=== PATIENT | male | born 1940 | race Caucasian/White ===

== ENCOUNTER 2020-01-22 16:25 | IRF | payer MEDICARE, OTHER, SELFPAY ==
[2020-01-22 17:14] VITALS: BP 103/74; PULSE 104; RESP 20; TEMP 36.3; O2SAT 97
[2020-01-22 17:15] VITALS: BMI 32.2
[2020-01-22 17:27] LABS: Glucose Point of Care 123 (65-105)
--- NOTE | 2020-01-22 20:45 | ADMGEN ---
This patient, Al Stacy, was admitted to [facility] Room 223-01. Patient/family oriented to hospital policies and general routines including ID bracelet, bed and alarms, visiting hours, pain management, procedures, bathroom and other care routines, personal items, smoking policy, room service/diet, and visiting hours. Valuables list has been completed. Information on how to activate the Rapid Response Team has been discussed. Patient/Family are encouraged to report perceived risks to care and to ask questions if they do not understand what they are told or what they should do. [id number] Here per POV and family at bedside, awake, alert, and oriented times person and place, situation, cues, up in bed, no complaints, call weaver within reach.
[2020-01-22] MEDS: ATORVASTATIN 40 MG TABLET PO (20:47)
[2020-01-22] MEDS: metFORMIN HCL 500 MG TABLET PO (20:48)
[2020-01-22 21:55] VITALS: BP 130/40; PULSE 75; RESP 18; TEMP 37.1; O2SAT 96
[2020-01-22 22:01] LABS: Glucose Point of Care 226 (65-105)
[2020-01-23 05:17] LABS: Basophils Absolute Auto 0.1 K/mm3 (0.0-0.1); Basophils Percent Auto 0.8 % (0.2-1.2); Eosinophils Absolute Auto 1.2 K/mm3 (0-0.3); Eosinophils Percent Auto 13.3 % (0-4.4); Hemoglobin 12.7 g/dL (14.0-18.0); Immature Granulocyte Absolute 0.03 K/mm3 (0.00-0.031); Immature Granulocyte Percent A 0.3 % (0-0.5); Lymphocytes Absolute Auto 2.57 K/mm3 (0.9-3.2); Lymphocytes Percent Auto 29.2 % (18.3-44.2); Mean Corpuscular HGB Conc 33.4 g/dl (32-36); Mean Corpuscular Hemoglobin 29.4 pg (26-34); Mean Platelet Volume 11.7 fl (7.4-10.4); Monocytes Percent Auto 11.6 % (2.6-8.5); Neutrophils Absolute Auto 3.9 K/mm3 (1.3-6.7); Neutrophils Percent Auto 44.8 % (45.5-73.1); Platelet Count Result 209 k/mm3 (150-375); Red Blood Count 4.32 M/mm3 (4.6-6.20); Red Cell Distribution Width 12.6 % (11.5-14.5); White Blood Count 8.8 K/mm3 (4.5-10.0)
[2020-01-23 05:27] LABS: Blood Urea Nitrogen 27 mg/dL (9-20); Calcium 9.1 mg/dL (8.4-10.2); Carbon Dioxide 27 mmol/L (22-30); Chloride 102 mmol/L (98-107); Cholesterol 111 mg/dL (0-200); Estimated CRCL calculation 54 ml/min; Estimated Glomerular Filt Rate > 60; Glucose 186 mg/dL (75-110); HDL Direct 28 mg/dL; Potassium 3.9 mmol/L (3.4-5.0); Sodium 137 mmol/L (137-145); Triglycerides 98 mg/dL (<150)
[2020-01-23 05:38] LABS: LDL Cholesterol Direct 66 mg/dL
[2020-01-23] MEDS: LEVOTHYROXINE SODIUM 75 MCG TABLET PO (05:59)
[2020-01-23 06:00] VITALS: BP 120/52; PULSE 65; RESP 18; TEMP 36.3; O2SAT 95
[2020-01-23 06:09] LABS: Hemoglobin A1C 8.6 % (<5.7)
[2020-01-23 06:58] LABS: Glucose Point of Care 189 (65-105)
[2020-01-23] MEDS: ASPIRIN 81 MG CHEWABLE TABLET 162 MG PO (08:31)
[2020-01-23] MEDS: metFORMIN HCL 500 MG TABLET PO ×2 (08:31→17:41)
[2020-01-23] MEDS: OPTI-GEN TAB 1 TABLET PO (08:32)
[2020-01-23] MEDS: lisinopriL 2.5 MG TABLET PO (08:32)
[2020-01-23] MEDS: glyBURIDE 2.5 MG TABLET PO ×2 (08:32→17:41)
[2020-01-23] MEDS: CLOPIDOGREL BISULFATE 75 MG TABLET PO (08:32)
--- NOTE | 2020-01-23 10:00 | WPDREHABHP ---
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 The patient is a 79-year-old right-handed white male who clearly has moderate cognitive deficit and unable to offer much of a history and in fact does not even know that he has is stroke but quite comfortable has history of diabetes hypertension and prior stroke who presented to [facility] emergency department on January 20, 2020 at the urging of his 2 sons. The sons concerns were that the patient had a very unsteady gait reduced coordination non since sickle talking and slow response. Neurology was consulted out of the emergency room and recommended bolus of normal saline hold antihypertensive medication and Plavix load. CT of the brain was negative MRI brain demonstrated small infarcts in the left basal ganglia and internal capsule. Aspirin Lipitor and Plavix were started. MRA showed no occlusion or focal significant stenosis or aneurysm in the visualized portions of the [place] of [place] the patient had a bedside swallowing evaluation on January 21, 2020 and regular consistency diet with thin liquids were recommended. DVT prophylaxis with the Plavix and Lovenox is speech therapy to evaluate for cognition and memory Therapy was initiated at the acute care facility and the patient transferred to us from [facility] on January 22, 2020 FALLS OR SURGERIES: The patient has had no major surgeries in the 100 days prior to admission. They had no falls in the past year. They had no falls with injury in the past year. PAST MEDICAL HISTORY: diabetes mellitus with peripheral neuropathy [id number] hyperlipidemia hypothyroidism and ischemic colitis along with the previous history of having had stroke PAST SURGICAL HISTORY: eye surgery probably cataract SOCIAL HISTORY: never smoker no alcohol or drug use FAMILY HISTORY: father had heart attack PRIOR LEVEL OF FUNCTION: Eating was INDEPENDENT Oral Care was INDEPENDENT Toileting Hygiene was INDEPENDENT Shower/Bathing was INDEPENDENT Upper Body Dressing was INDEPENDENT Lower Body Dressing was INDEPENDENT Donning/[place] Footwear was INDEPENDENT Rolling Left and Right was INDEPENDENT Sit to Lying was INDEPENDENT Lying to Sitting was INDEPENDENT Sit to Stand was INDEPENDENT Bed to Chair Transfers was INDEPENDENT Toilet Transfers was INDEPENDENT Walking was INDEPENDENT more than 750 feet with NO DEVICE Wheelchair Mobility was NOT APPLICABLE PRIOR TO ADMISSION Stairs were INDEPENDENT CURRENT LEVEL OF FUNCTION: Eating was independent Oral Care was partial over moderate assist Toileting Hygiene was partial/moderate assistance Shower/Bathing was partial/moderate assistance Upper Body Dressing was partial Serratia more assistance Lower Body Dressing was partial/moderate assisted Donning/[place] Footwear was partial/moderate assistance Rolling Left and Right was supervision or touch assistance Sit to Lying was supervision or touch assistance Lying to Sitting was partial or moderate assistance Sit to Stand was partial or [place]herty assistance Bed to Chair Transfers were partial or moderate assist Toilet Transfers were partial or more assistance Walking was 300 feet with a rests with standard walker partial/more assistance Wheelchair Mobility was not tested Stairs were not tested patient is having new cognitive and memory deficit since left-sided stroke and already has to my examination left-sided visual field defect which possibly may have been present either due to previous stroke as there is a history of or else possibly related to some ophthalmological disease which I would need to
[2020-01-23 11:54] LABS: Glucose Point of Care 203 (65-105)
[2020-01-23 14:00] VITALS: BP 125/55; PULSE 80; RESP 18; TEMP 36.2; O2SAT 96
[2020-01-23 14:12] VITALS: BMI 32.2
[2020-01-23 17:33] LABS: Glucose Point of Care 131 (65-105)
[2020-01-23 21:18] LABS: Glucose Point of Care 154 (65-105)
[2020-01-23] MEDS: ATORVASTATIN 40 MG TABLET PO (21:18)
[2020-01-23 21:44] VITALS: BP 113/76; PULSE 70; RESP 20; TEMP 36.6; O2SAT 98
[2020-01-24 06:00] VITALS: BP 97/60; PULSE 71; RESP 16; TEMP 35.9; O2SAT 96
[2020-01-24] MEDS: LEVOTHYROXINE SODIUM 75 MCG TABLET PO (06:10)
[2020-01-24 07:16] LABS: Glucose Point of Care 119 (65-105)
[2020-01-24] MEDS: ASPIRIN 81 MG CHEWABLE TABLET 162 MG PO (08:37)
[2020-01-24] MEDS: metFORMIN HCL 500 MG TABLET PO ×2 (08:38→17:16)
[2020-01-24] MEDS: CLOPIDOGREL BISULFATE 75 MG TABLET PO (08:38)
[2020-01-24] MEDS: OPTI-GEN TAB 1 TABLET PO (08:38)
[2020-01-24] MEDS: glyBURIDE 2.5 MG TABLET PO ×2 (08:38→17:16)
[2020-01-24] MEDS: lisinopriL 2.5 MG TABLET PO (08:38)
--- NOTE | 2020-01-24 10:54 | RPD ---
INDIVIDUALIZED PLAN OF CARE FOR Al Stacy Brief Synthesis of Pre-Admission Screen, Post-Admission Evaluation and Therapy Evaluations: The patient presents to rehab with acute infarcts of the left basal ganglia and internal capsule. Comorbidities include diabetes mellitus, hypothyroidism, acute kidney injury, hypertension, hyperlipidemia, colitis. The patient requires physician services for neurology services, medical oversight, and coordination of care. The patient needs physician monitoring for infection, monitoring for adverse reactions to new medications, and pain control. The patient requires nursing services for frequent neuro checks, anticoagulation therapy, medication management and education, pressure relief and skin care management, monitoring of labs, diabetes management and education and fall/safety precautions. Deficits include:ADLs, Balance, Endurance, Mobility, Pain Management, ROM, Safety, Strength, Transfers, Cognition Inkjet Operator/Case Management for: Discharge Planning and Patient/Family Counseling Physical Therapy: 5 days per week for 60 minutes. Treatments may include: Therapeutic Exercise, Gait Training, Neuromuscular Re-education, Transfer Training, Community Reintegration, Bed Mobility, Patient/Family Education, Wheelchair Mobility Group Therapy/Concurrent Therapy Rationales: -Improve attention span during functional activities in a distracted environment. -Enhance problem solving and/or adequate judgment skills during functional activities in a distracted environment. -Promote increased safety awareness in a distracted environment to reduce fall risk with functional tasks, transfers, and ambulation to allow a more safe, self-sufficient return to the home environment. -Improve dynamic balance skills to promote safety and independence with functional activities in a distracted environment for maximum gain. Occupational Therapy: 5 days per week for 60 minutes. Treatments may include: Therapeutic Exercise, Therapeutic Activity, Cognitive Training, Self-Care Transfer Training, Community Reintegration, Home Management, Patient/Family Education, Wheelchair Mobility Training, Energy Conservation Training Group Therapy/Concurrent Therapy Rationales: -Allow therapist to observe and teach generalization and carry-over of skills learned in individual therapy. -Enhance problem solving and sequencing skills during therapeutic activities in a distracted environment. -Promote increased safety awareness in a realistic setting to reduce fall risk with functional tasks due to visual and verbal distractions. -Increase functional level with ADLs, ADL transfers and use of adaptive equipment through therapeutic activities with others while promoting safety to allow a more safe, self-sufficient return home. Speech Therapy: 5 days per week for 60 minutes. Treatments may include: Dysphasia Therapy, Speech/Language/Communication Therapy, Cognitive Training, Patient/Family Education Group Therapy/Concurrent Therapy - Rationale: -Allow therapist to observe and teach generalization and carry-over of skills learned in individual therapy. -Improve comprehension skills with complex or abstract ideas through discussion in a realistic setting. -Enhance problem solving skills with complex issues during activities in a distracted environment. -Promote increased memory skills and concentration in a distracted environment for a safe transition home. -Improve attention and focus with language/communication skills in a realistic and supportive therapeutic setting. -Allow for practice of expression of basic needs and ideas through functional activities with others. Medical Prognosis: Good Anticipated Length of Stay: 12 days Rehab Goals: Eating Goal: 06-Independent Oral Hygiene Goal: 06-Independent Toileting Hygiene Goal: 06-Independent Shower/Bathe Self Goal: 04-Supervision or Touching Assistance Upper Body Dressing Goal: 05-Setup or Clean Up Assistance Lower
--- NOTE | 2020-01-24 11:34 | WPDNEURORHBP ---
Subjective Date/time seen: January 24, 2012 11:34 Interval history: this 79-year-old gentleman is here after having had a stroke of the left cerebral hemisphere which has left him with the cognitive deficit aphasia or dysarthria expressive aphasia and bilateral weakness right more so than the left he does have a history of diabetes mellitus with peripheral neuropathy hyperlipidemia hypothyroidism and having had history of ischemic colitis Patient denies having had chest pain shortness of breath nausea vomiting fever chills sore throat abdominal pain or diarrhea Review of Systems Review of Systems: All systems reviewed & are unremarkable except as noted in HPI and below Functional Status Ambulation Ability Ability to Ambulate 10 Feet: Minimum Assistance X 2 Ability to Ambulate 50 Feet With 2 Turns: Minimum Assistance X 1 Ability to Ambulate 150 Feet: Standby Assistance Ambulation Assistive Devices: Walker, Wheeled Transfers Ability Ability to Transfer In/Out of Chair: Contact Guard Exam Const: General: comfortable and no acute distress HENMT: General nose exam: Normal nares present Mouth: Yes moist mucous membranes Eyes: General: appearance normal, both eyes and all related structures Neck: Neck: supple and no JVD Resp: Effort & Inspection: normal respiratory effort Auscultation: clear to auscultation bilaterally Cardio: Rate: regular rate Rhythm: regular rhythm GI: GI Palp: Yes Soft to palpation Auscultation: normal bowel sounds Skin: General skin exam: normal color and no rashes or lesions noted Neuro: Other: patient is awake alert partially oriented has expressive aphasia and also comprehensive aphasia [id number] bilateral weakness needing assistance all the activities of daily living with evidence of peripheral neuropathy depressed reflexes in the lower extremities and equivocal Babinski sign Extrem: General: normal to inspection Psych: Other: patient has cognitive deficit with expressive aphasia however no sign of hostility or any change in his mood Objective Data Vital Signs Vital Signs: Vital Signs - 24 hr 01/24/20 14:00 01/24/20 22:00 01/25/20 06:00 Temperature 36.8 C 36.4 C 35.8 C L Pulse Rate 76 72 95 Respiratory Rate 20 18 18 Blood Pressure 108/58 L 122/42 L 96/47 L Pulse Oximetry 99 97 93 Intake/Output Intake/Output: Intake & Output 01/22/20 01/23/20 01/24/20 01/25/20 23:59 23:59 23:59 23:59 Intake Total 480 840 720 360 Balance 480 840 720 360 Meds/Results Medications: Active Medications Generic Name Dose Route Start Last Admin Trade Name Joseq PRN Reason Stop Dose Admin Aspirin 162 mg 01/23/20 09:00 01/25/20 08:15 Aspirin Chewable PO 162 mg DAILY KEITH Administration Atorvastatin Calcium 40 mg 01/22/20 21:00 01/24/20 20:39 Lipitor PO 40 mg HS KEITH Administration Clopidogrel Bisulfate 75 mg 01/23/20 09:00 01/25/20 08:14 Plavix PO 75 mg DAILY KEITH Administration Glyburide 2.5 mg 01/23/20 08:00 01/25/20 08:15 Micronase PO 2.5 mg BIDWM KEITH Administration Levothyroxine Sodium 75 mcg 01/23/20 06:30 01/25/20 06:02 Synthroid PO 75 mcg 0630 KEITH Administration Lisinopril 2.5 mg 01/23/20 09:00 01/25/20 08:14 Prinivil PO 2.5 mg DAILY KEITH Administration Metformin HCl 500 mg 01/22/20 17:00 01/25/20 08:14 Glucophage PO 500 mg BIDWM KEITH Administration Multivitamins/Minerals 1 tablet 01/23/20 09:00 01/25/20 08:14 Ocuvite PO 02/22/20 09:01 1 tablet DAILY KEITH Administration Labs Labs: Laboratory Results - last 24 hr 01/24/20 01/24/20 01/25/20 16:42 20:51 07:08 POC Capillary Glucose 139 H 132 H 91 Progress Note: A&P Assessment and Plan (1) Bilateral leg weakness: Code(s): R29.898 - Other symptoms and signs involving the musculoskeletal system Status: Acute (2) Aphasia: Code(s): R47.01 - Aphasia Status: Acute (3) Hypothyroid: Code(s)
[2020-01-24 14:00] VITALS: BP 108/58; PULSE 76; RESP 20; TEMP 36.8; O2SAT 99
[2020-01-24 16:57] LABS: Glucose Point of Care 139 (65-105)
[2020-01-24] MEDS: ATORVASTATIN 40 MG TABLET PO (20:39)
[2020-01-24 21:14] LABS: Glucose Point of Care 132 (65-105)
[2020-01-24 22:00] VITALS: BP 122/42; PULSE 72; RESP 18; TEMP 36.4; O2SAT 97
[2020-01-25 06:00] VITALS: BP 96/47; PULSE 95; RESP 18; TEMP 35.8; O2SAT 93
[2020-01-25] MEDS: LEVOTHYROXINE SODIUM 75 MCG TABLET PO (06:02)
[2020-01-25 07:14] LABS: Glucose Point of Care 91 (65-105)
[2020-01-25] MEDS: CLOPIDOGREL BISULFATE 75 MG TABLET PO (08:14)
[2020-01-25] MEDS: OPTI-GEN TAB 1 TABLET PO (08:14)
[2020-01-25] MEDS: metFORMIN HCL 500 MG TABLET PO ×2 (08:14→17:40)
[2020-01-25] MEDS: lisinopriL 2.5 MG TABLET PO (08:14)
[2020-01-25] MEDS: ASPIRIN 81 MG CHEWABLE TABLET 162 MG PO (08:15)
[2020-01-25] MEDS: glyBURIDE 2.5 MG TABLET PO ×2 (08:15→17:40)
--- NOTE | 2020-01-25 10:42 | PCPTNOTE ---
Al Apolonia FlyodTawanna was evaluated for a wheeled walker on 01/25/2020 by this physical therapist. The wheeled walker will resolve patient's mobility limitations and will be used for ADL's within the home. The patient can safely use the wheeled walker. ?The wheeled walker will resolve the patient?s mobility deficits, including transfers, gait in and out of his home. Iraida Pathak PT
[2020-01-25 11:54] LABS: Glucose Point of Care 96 (65-105)
[2020-01-25 14:00] VITALS: BP 111/54; PULSE 74; RESP 18; TEMP 36.4; O2SAT 96
--- NOTE | 2020-01-25 14:50 | WPDNEURORHBP ---
Subjective Date/time seen: 01/25/20 14:50 Interval history: this pleasant 79-year-old male is here on the acute rehab after sustaining a left hemispheric stroke which has left him with the cognitive deficit memory loss and right-sided weakness he is pleasant cooperative however has difficulty remembering things and also obvious speech defect On the other hand he denies any headache double vision blurred will any new neurological complaints no chest pain no shortness of breath no nausea vomiting abdominal pain fevers chills or sore throat Review of Systems Review of Systems: All systems reviewed & are unremarkable except as noted in HPI and below Functional Status Ambulation Ability Ability to Ambulate 10 Feet: Minimum Assistance X 2 Ability to Ambulate 50 Feet With 2 Turns: Minimum Assistance X 1 Ability to Ambulate 150 Feet: Standby Assistance Ambulation Assistive Devices: Walker, Wheeled Transfers Ability Ability to Transfer In/Out of Chair: Contact Guard Exam Const: General: comfortable and no acute distress HENMT: General nose exam: Normal nares present Mouth: Yes moist mucous membranes Eyes: General: appearance normal, both eyes and all related structures Neck: Neck: supple and no JVD Resp: Effort & Inspection: normal respiratory effort Auscultation: clear to auscultation bilaterally Cardio: Rate: regular rate Rhythm: regular rhythm GI: GI Palp: Yes Soft to palpation Auscultation: normal bowel sounds Skin: General skin exam: normal color and no rashes or lesions noted Neuro: Other: patient has both expressive and comprehensive aphasia however able to follow commands and engage in therapy overall he is slowly improving however is left with cognitive deficit which will help for his discharged to an independent situation right-sided hemiparesis is improving Extrem: General: normal to inspection Psych: Other: cognitive and speech deficit Objective Data Vital Signs Vital Signs: Vital Signs - 24 hr 01/24/20 22:00 01/25/20 06:00 Temperature 36.4 C 35.8 C L Pulse Rate 72 95 Respiratory Rate 18 18 Blood Pressure 122/42 L 96/47 L Pulse Oximetry 97 93 Intake/Output Intake/Output: Intake & Output 01/22/20 01/23/20 01/24/20 01/25/20 23:59 23:59 23:59 23:59 Intake Total 480 840 720 360 Balance 480 840 720 360 Meds/Results Medications: Active Medications Generic Name Dose Route Start Last Admin Trade Name Freq PRN Reason Stop Dose Admin Aspirin 162 mg 01/23/20 09:00 01/25/20 08:15 Aspirin Chewable PO 162 mg DAILY [facility] Administration Atorvastatin Calcium 40 mg 01/22/20 21:00 01/24/20 20:39 Lipitor PO 40 mg HS KEITH Administration Clopidogrel Bisulfate 75 mg 01/23/20 09:00 01/25/20 08:14 Plavix PO 75 mg DAILY KEITH Administration Glyburide 2.5 mg 01/23/20 08:00 01/25/20 08:15 Micronase PO 2.5 mg BIDWM KEITH Administration Levothyroxine Sodium 75 mcg 01/23/20 06:30 01/25/20 06:02 Synthroid PO 75 mcg 0630 KEITH Administration Lisinopril 2.5 mg 01/23/20 09:00 01/25/20 08:14 Prinivil PO 2.5 mg DAILY KEITH Administration Metformin HCl 500 mg 01/22/20 17:00 01/25/20 08:14 Glucophage PO 500 mg BIDWM [facility] Administration Multivitamins/Minerals 1 tablet 01/23/20 09:00 01/25/20 08:14 Ocuvite PO 02/22/20 09:01 1 tablet DAILY KEITH Administration Labs Labs: Laboratory Results - last 24 hr 01/24/20 01/24/20 01/25/20 16:42 20:51 07:08 POC Capillary Glucose 139 H 132 H 91 01/25/20 11:47 POC Capillary Glucose 96 Progress Note: A&P Assessment and Plan (1) Bilateral leg weakness: Code(s): R29.898 - Other symptoms and signs involving the musculoskeletal system Status: Acute (2) Bilateral arm weakness: Code(s): R29.898 - Other symptoms and signs involving the musculoskeletal system Status: Acute (3) Aphasia: Code(s): R47.01 - Aphasia Status: Acu
[2020-01-25 16:42] LABS: Glucose Point of Care 88 (65-105)
[2020-01-25] MEDS: ATORVASTATIN 40 MG TABLET PO (21:42)
[2020-01-25 22:00] VITALS: BP 141/62; PULSE 78; RESP 18; TEMP 36.3; O2SAT 96
[2020-01-25 22:16] LABS: Glucose Point of Care 122 (65-105)
[2020-01-26 06:00] VITALS: BP 136/60; PULSE 72; RESP 18; TEMP 36.3; O2SAT 97
[2020-01-26] MEDS: LEVOTHYROXINE SODIUM 75 MCG TABLET PO (06:43)
[2020-01-26 07:06] LABS: Glucose Point of Care 71 (65-105)
[2020-01-26] MEDS: metFORMIN HCL 500 MG TABLET PO ×2 (09:05→17:57)
[2020-01-26] MEDS: ASPIRIN 81 MG CHEWABLE TABLET 162 MG PO (09:05)
[2020-01-26] MEDS: glyBURIDE 2.5 MG TABLET PO (09:05)
[2020-01-26] MEDS: lisinopriL 2.5 MG TABLET PO (09:06)
[2020-01-26] MEDS: OPTI-GEN TAB 1 TABLET PO (09:06)
[2020-01-26] MEDS: CLOPIDOGREL BISULFATE 75 MG TABLET PO (09:06)
[2020-01-26 13:58] VITALS: O2SAT 0
[2020-01-26 14:00] VITALS: BP 93/56; PULSE 57; RESP 20; TEMP 36.2; O2SAT 98
[2020-01-26 17:18] LABS: Glucose Point of Care 60 (65-105)
[2020-01-26 18:00] LABS: Glucose Point of Care 82 (65-105)
--- NOTE | 2020-01-26 19:49 | PC.NURSE ---
Checked dinner blood sugar, was 60 and supper here. Rechecked after about 1/2 through meal (eats slowly) and was up to 82. Called Dr. Yanez and stated to hold gliberide.
[2020-01-26] MEDS: ATORVASTATIN 40 MG TABLET PO (20:14)
[2020-01-26 20:44] LABS: Glucose Point of Care 94 (65-105)
[2020-01-26 22:00] VITALS: BP 109/42; PULSE 73; RESP 18; TEMP 36.3; O2SAT 97
[2020-01-27] MEDS: LEVOTHYROXINE SODIUM 75 MCG TABLET PO (05:57)
[2020-01-27 06:00] VITALS: BP 110/73; PULSE 72; RESP 18; TEMP 36.6; O2SAT 98
[2020-01-27 07:04] LABS: Glucose Point of Care 107 (65-105)
[2020-01-27] MEDS: metFORMIN HCL 500 MG TABLET PO ×2 (09:24→17:43)
[2020-01-27] MEDS: CLOPIDOGREL BISULFATE 75 MG TABLET PO (09:24)
[2020-01-27] MEDS: glyBURIDE 2.5 MG TABLET PO ×2 (09:24→17:42)
[2020-01-27] MEDS: OPTI-GEN TAB 1 TABLET PO (09:25)
[2020-01-27] MEDS: lisinopriL 2.5 MG TABLET PO (09:25)
[2020-01-27] MEDS: ASPIRIN 81 MG CHEWABLE TABLET 162 MG PO (09:25)
--- NOTE | 2020-01-27 13:56 | WPDNEURORHBP ---
Subjective Date/time seen: 01/27/20 13:56 Review of Systems Review of Systems: All systems reviewed & are unremarkable except as noted in HPI and below Functional Status Ambulation Ability Ability to Ambulate 10 Feet: Contact Guard Ability to Ambulate 50 Feet With 2 Turns: Contact Guard Ability to Ambulate 150 Feet: Contact Guard Ambulation Assistive Devices: Walker, Wheeled Transfers Ability Ability to Transfer In/Out of Chair: Standby Assistance Exam Const: General: cooperative, comfortable, no acute distress and alert Orientation/consciousness: oriented to person and oriented to place Eyes: General: appearance normal, both eyes and all related structures Alignment and Position: alignment normal Eyelids: eyelids normal Sclera: sclerae normal Pupils: Equal, round and reactive pupils present EOM: EOMs intact bilaterally Chest: Chest palpation & inspection: normal inspection of the chest Resp: Effort & Inspection: normal respiratory effort Auscultation: clear to auscultation bilaterally Cardio: Rate: regular rate Rhythm: regular rhythm GI: Auscultation: normal bowel sounds Skin: General skin exam: no rashes or lesions noted Neuro: General: oriented to person, oriented to place, gait normal (hemiparetic) and no focal motor deficits (right sided deficit) Cranial nerves: Yes Equal, round and reactive pupils present, Yes Midline tongue present, Yes Symmetric palate elevation present, Yes Ability to bilaterally rotate head present, Yes Ability to bilaterally elevate shoulders present and Yes Other cranial nerve findings present (right visual field cut) Gait exam (Neuro): Normal gait present (hemiparetic gait) Deep tendon reflexes (DTR's): Right triceps reflex intensity grade: 1+, Left triceps reflex intensity grade: 0, Rt Biceps (C5, C6): 1+, Left biceps reflex intensity grade: 0, Right brachioradialis reflex intensity grade: 1+, Left brachioradialis reflex intensity grade: 0, Right patellar reflex intensity grade: 1+, Left patellar reflex intensity grade: 0, Right ankle reflex intensity grade: 1+ and Left ankle reflex intensity grade: 0 Plantar Reflex Responses: downgoing: left and upgoing (positive Babinski): right Psych: Appearance: grossly normal Objective Data Vital Signs Vital Signs: Vital Signs - 24 hr 01/26/20 14:00 01/26/20 22:00 01/27/20 06:00 Temperature 36.2 C L 36.3 C L 36.6 C Pulse Rate 57 L 73 72 Respiratory Rate 20 18 18 Blood Pressure 93/56 L 109/42 L 110/73 Pulse Oximetry 98 97 98 Intake/Output Intake/Output: Intake & Output 01/24/20 01/25/20 01/26/20 01/27/20 23:59 23:59 23:59 23:59 Intake Total 720 960 720 240 Balance 720 960 720 240 Meds/Results Medications: Active Medications Generic Name Dose Route Start Last Admin Trade Name Tiara PRN Reason Stop Dose Admin Aspirin 162 mg 01/23/20 09:00 01/27/20 09:25 Aspirin Chewable PO 162 mg DAILY KEITH Administration Atorvastatin Calcium 40 mg 01/22/20 21:00 01/26/20 20:14 Lipitor PO 40 mg HS KEITH Administration Clopidogrel Bisulfate 75 mg 01/23/20 09:00 01/27/20 09:24 Plavix PO 75 mg DAILY KEITH Administration Glyburide 2.5 mg 01/23/20 08:00 01/27/20 09:24 Micronase PO 2.5 mg BIDWM KEITH Administration Levothyroxine Sodium 75 mcg 01/23/20 06:30 01/27/20 05:57 Synthroid PO 75 mcg 0630 KEITH Administration Lisinopril 2.5 mg 01/23/20 09:00 01/27/20 09:25 Prinivil PO 2.5 mg DAILY KEITH Administration Metformin HCl 500 mg 01/22/20 17:00 01/27/20 09:24 Glucophage PO 500 mg BIDWM KEITH Administration Multivitamins/Minerals 1 tablet 01/23/20 09:00 01/27/20 09:25 Ocuvite PO 02/22/20 09:01 1 tablet DAILY KEITH Administration Labs Labs: Laboratory Results - last 24 hr 01/26/20 01/26/20 01/26/20 17:07 17:54 20:42 POC Capillary Glucose 60 L 82 94 01/27/20 06:50 POC Capillary Glucose 107 Progress Note: A&P Assessment and Plan (1)
[2020-01-27 14:38] VITALS: BP 98/78; PULSE 66; RESP 16; TEMP 36.4; O2SAT 95
[2020-01-27 17:38] LABS: Glucose Point of Care 96 (65-105)
[2020-01-27] MEDS: ATORVASTATIN 40 MG TABLET PO (20:28)
[2020-01-27 21:18] LABS: Glucose Point of Care 100 (65-105)
[2020-01-27 21:48] VITALS: BP 106/72; PULSE 66; RESP 16; TEMP 36.2; O2SAT 96
[2020-01-28] MEDS: LEVOTHYROXINE SODIUM 75 MCG TABLET PO (05:27)
[2020-01-28 06:00] VITALS: BP 152/77; PULSE 82; RESP 20; TEMP 35.9; O2SAT 95
[2020-01-28 06:56] LABS: Glucose Point of Care 76 (65-105)
[2020-01-28] MEDS: metFORMIN HCL 500 MG TABLET PO ×2 (08:26→16:58)
[2020-01-28] MEDS: glyBURIDE 2.5 MG TABLET PO ×2 (08:26→16:58)
[2020-01-28] MEDS: ASPIRIN 81 MG CHEWABLE TABLET 162 MG PO (08:26)
[2020-01-28] MEDS: lisinopriL 2.5 MG TABLET PO (08:26)
[2020-01-28] MEDS: CLOPIDOGREL BISULFATE 75 MG TABLET PO (08:26)
[2020-01-28] MEDS: OPTI-GEN TAB 1 TABLET PO (08:26)
[2020-01-28 14:00] VITALS: BP 130/57; PULSE 74; RESP 20; TEMP 36.3; O2SAT 98
[2020-01-28] MEDS: ATORVASTATIN 40 MG TABLET PO (20:13)
[2020-01-28 22:00] VITALS: BP 108/47; PULSE 78; RESP 18; TEMP 36.7; O2SAT 99
[2020-01-29 06:00] VITALS: BP 110/48; PULSE 78; RESP 18; TEMP 36.3; O2SAT 97
[2020-01-29 06:02] LABS: Glucose Point of Care 78 (65-105)
[2020-01-29] MEDS: LEVOTHYROXINE SODIUM 75 MCG TABLET PO (06:15)
[2020-01-29] MEDS: metFORMIN HCL 500 MG TABLET PO ×2 (07:55→17:13)
[2020-01-29] MEDS: OPTI-GEN TAB 1 TABLET PO (07:55)
[2020-01-29] MEDS: lisinopriL 2.5 MG TABLET PO (07:55)
[2020-01-29] MEDS: CLOPIDOGREL BISULFATE 75 MG TABLET PO (07:55)
[2020-01-29] MEDS: glyBURIDE 2.5 MG TABLET PO ×2 (07:55→17:13)
[2020-01-29] MEDS: ASPIRIN 81 MG CHEWABLE TABLET 162 MG PO (07:55)
--- NOTE | 2020-01-29 12:37 | PCPTNOTE ---
Al Stacy was evaluated for a wheeled walker on 01/29/2020 by this physical therapist. The wheeled walker will resolve patient's mobility limitations and will be used for ADL's within the home. The patient can safely use the wheeled walker with family standby assist. ?The wheeled walker will resolve the patient?s mobility deficits, including transfers, gait in and out of home with family. Iraida Pathak PT
--- NOTE | 2020-01-29 13:41 | PCDIET ---
Nutrition Follow-Up Complete: Decreased saturated fat/sodium needs related to cardiovascular disease as evidenced by CVA. Patient to consume 75% of meals or greater. Goal met. Pt eating an average of 95% of meals. Nutrition recommendation: Recommend continuation of DM CHO consistent diet order in order to provide pt with adequate nutrition and stabilize glucose levels, promoting healing. Last recorded weight is 93.4 kg. Bowel Motility: +BM 01/26 Labs Reviewed: POC Capillary GLU (78) Meds Noted:Multivitamin, Lipitor, Metformin, Glyburide Additional Notes: Pt states appetite is good and no GI related complaints. Follow up in 5-7 days.
[2020-01-29 14:00] VITALS: BP 110/55; PULSE 74; RESP 20; TEMP 36.3; O2SAT 96
--- NOTE | 2020-01-29 14:04 | PCNSR ---
On 01/29/20, the student, [La Nena Arriaga ], provided care and completed [facility] documentation on this patient. I have reviewed the student's documentation and agree with the findings.
--- NOTE | 2020-01-29 14:48 | WPDNEURORHBP ---
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 which has left him with the speech defect and cognitive deficit along with right-sided hemiparesis the motor function is not that he was however his problem is the impulsivity and of course the cognitive deficit along with the speech defect He remains awake and alert follows commands and improving overall without any complaints of headache nausea vomiting chest pain and shortness of breath abdominal pain or bladder or bowel dysfunction Review of Systems Review of Systems: All systems reviewed & are unremarkable except as noted in HPI and below Constitutional: Constitutional: Reports no additional constitutional complaints Functional Status Ambulation Ability Ability to Ambulate 10 Feet: Minimum Assistance X 1 Ability to Ambulate 50 Feet With 2 Turns: Minimum Assistance X 1 Ability to Ambulate 150 Feet: Minimum Assistance X 1 Ambulation Assistive Devices: Walker, Wheeled Transfers Ability Ability to Transfer In/Out of Chair: Contact Guard Exam Const: General: comfortable and no acute distress HENMT: General nose exam: Normal nares present Mouth: Yes moist mucous membranes Eyes: General: appearance normal, both eyes and all related structures Neck: Neck: supple and no JVD Resp: Effort & Inspection: normal respiratory effort Auscultation: clear to auscultation bilaterally Cardio: Rate: regular rate Rhythm: regular rhythm GI: GI Palp: Yes Soft to palpation Auscultation: normal bowel sounds Skin: General skin exam: normal color and no rashes or lesions noted Neuro: Other: patient is awake alert partially oriented follows all commands has a defective short-term memory and cognitive deficit with improving right-sided hemiparesis Extrem: General: normal to inspection Objective Data Vital Signs Vital Signs: Vital Signs - 24 hr 01/28/20 22:00 01/29/20 06:00 01/29/20 14:00 Temperature 36.7 C 36.3 C L 36.3 C L Pulse Rate 78 78 74 Respiratory Rate 18 18 20 Blood Pressure 108/47 L 110/48 L 110/55 L Pulse Oximetry 99 97 96 Intake/Output Intake/Output: Intake & Output 01/26/20 01/27/20 01/28/20 01/29/20 23:59 23:59 23:59 23:59 Intake Total 720 920 720 720 Balance 720 920 720 720 Meds/Results Medications: Active Medications Generic Name Dose Route Start Last Admin Trade Name Tiara PRN Reason Stop Dose Admin Aspirin 162 mg 01/23/20 09:00 01/29/20 07:55 Aspirin Chewable PO 162 mg DAILY KEITH Administration Atorvastatin Calcium 40 mg 01/22/20 21:00 01/28/20 20:13 Lipitor PO 40 mg HS KEITH Administration Clopidogrel Bisulfate 75 mg 01/23/20 09:00 01/29/20 07:55 Plavix PO 75 mg DAILY KEITH Administration Glyburide 2.5 mg 01/23/20 08:00 01/29/20 07:55 Micronase PO 2.5 mg BIDWM KEITH Administration Levothyroxine Sodium 75 mcg 01/23/20 06:30 01/29/20 06:15 Synthroid PO 75 mcg 0630 KEITH Administration Lisinopril 2.5 mg 01/23/20 09:00 01/29/20 07:55 Prinivil PO 2.5 mg DAILY KEITH Administration Metformin HCl 500 mg 01/22/20 17:00 01/29/20 07:55 Glucophage PO 500 mg BIDWM KEITH Administration Multivitamins/Minerals 1 tablet 01/23/20 09:00 01/29/20 07:55 Ocuvite PO 02/22/20 09:01 1 tablet DAILY KEITH Administration Labs Labs: Laboratory Results - last 24 hr 01/29/20 05:45 POC Capillary Glucose 78 Progress Note: A&P Assessment and Plan (1) Bilateral leg weakness: Code(s): R29.898 - Other symptoms and signs involving the musculoskeletal system Status: Acute (2) Bilateral arm weakness: Code(s): R29.898 - Other symptoms and signs involving the musculoskeletal system Status: Acute (3) Aphasia: Code(s): R47.01 - Aphasia Status: Acute (4) Hypothyroid: Code(s): E03.9 - Hypothyroidism, unspecified Status: A
[2020-01-29 17:15] LABS: Glucose Point of Care 219 (65-105)
[2020-01-29] MEDS: ATORVASTATIN 40 MG TABLET PO (20:21)
[2020-01-29 21:09] LABS: Glucose Point of Care 183 (65-105)
[2020-01-29 22:00] VITALS: BP 105/48; PULSE 79; RESP 18; TEMP 36.5; O2SAT 95
[2020-01-30 04:43] LABS: Basophils Absolute Auto 0.1 K/mm3 (0.0-0.1); Basophils Percent Auto 0.7 % (0.2-1.2); Eosinophils Absolute Auto 1.2 K/mm3 (0-0.3); Eosinophils Percent Auto 12.6 % (0-4.4); Hematocrit 38.6 % (42.0-52.0); Hemoglobin 13.5 g/dL (14.0-18.0); Immature Granulocyte Absolute 0.04 K/mm3 (0.00-0.031); Immature Granulocyte Percent A 0.4 % (0-0.5); Lymphocytes Absolute Auto 2.67 K/mm3 (0.9-3.2); Lymphocytes Percent Auto 28.5 % (18.3-44.2); Mean Corpuscular Hemoglobin 30.3 pg (26-34); Mean Corpuscular Volume 86.7 fl (80-100); Mean Platelet Volume 10.7 fl (7.4-10.4); Monocytes Percent Auto 10.4 % (2.6-8.5); Neutrophils Absolute Auto 4.4 K/mm3 (1.3-6.7); Neutrophils Percent Auto 47.4 % (45.5-73.1); Platelet Count Result 244 k/mm3 (150-375); Red Blood Count 4.45 M/mm3 (4.6-6.20); Red Cell Distribution Width 12.7 % (11.5-14.5); White Blood Count 9.4 K/mm3 (4.5-10.0)
[2020-01-30 05:12] LABS: Blood Urea Nitrogen 40 mg/dL (9-20); Calcium 9.1 mg/dL (8.4-10.2); Carbon Dioxide 25 mmol/L (22-30); Chloride 100 mmol/L (98-107); Estimated CRCL calculation 43 ml/min; Estimated Glomerular Filt Rate 49; Glucose 116 mg/dL (75-110); Potassium 4.6 mmol/L (3.4-5.0); Sodium 140 mmol/L (137-145)
[2020-01-30] MEDS: LEVOTHYROXINE SODIUM 75 MCG TABLET PO (05:35)
[2020-01-30 06:00] VITALS: BP 102/57; PULSE 67; RESP 18; TEMP 36; O2SAT 97
[2020-01-30 07:08] LABS: Glucose Point of Care 117 (65-105)
--- NOTE | 2020-01-30 08:47 | WPDNEURORHBP ---
Subjective Date/time seen: 01/30/20 08:47 Interval history: this 79-year-old gentleman was [id number] and some decreased vision was admitted because of stroke which has affected affected his cognitive abilities and motor functions are relatively preserved is planning to be discharged home tomorrow doing well x-ray of the creatinine is little bit high which is probably because of the fact that the patient is not drinking enough and I will advise him accordingly he denies any chest pain shortness of breath headache nausea vomiting diarrhea fever chills or sore throat Review of Systems Review of Systems: All systems reviewed & are unremarkable except as noted in HPI and below Functional Status Ambulation Ability Ability to Ambulate 10 Feet: Minimum Assistance X 1 Ability to Ambulate 50 Feet With 2 Turns: Minimum Assistance X 1 Ability to Ambulate 150 Feet: Minimum Assistance X 1 Ambulation Assistive Devices: Walker, Wheeled Transfers Ability Ability to Transfer In/Out of Chair: Contact Guard Exam Const: General: comfortable and no acute distress HENMT: General nose exam: Normal nares present Mouth: Yes moist mucous membranes Eyes: General: appearance normal, both eyes and all related structures Neck: Neck: supple and no JVD Resp: Effort & Inspection: normal respiratory effort Auscultation: clear to auscultation bilaterally Cardio: Rate: regular rate Rhythm: regular rhythm GI: GI Palp: Yes Soft to palpation Auscultation: normal bowel sounds Skin: General skin exam: normal color and no rashes or lesions noted Neuro: Other: patient is awake alert however is cognitively deficient by the fact that he does not remember as much and is impulsive and at times he needs to be guided for him to slow down which we have discussed with the family members in detail is lateralizing weakness has also improved Extrem: General: normal to inspection Psych: Other: decreased memory function impulsive however not delusional not belligerent and not suicidal Objective Data Vital Signs Vital Signs: Vital Signs - 24 hr 01/29/20 14:00 01/29/20 22:00 01/30/20 06:00 Temperature 36.3 C L 36.5 C 36.0 C L Pulse Rate 74 79 67 Respiratory Rate 20 18 18 Blood Pressure 110/55 L 105/48 L 102/57 L Pulse Oximetry 96 95 97 Intake/Output Intake/Output: Intake & Output 01/27/20 01/28/20 01/29/20 01/30/20 23:59 23:59 23:59 23:59 Intake Total 920 720 960 200 Balance 920 720 960 200 Meds/Results Medications: Active Medications Generic Name Dose Route Start Last Admin Trade Name Tiara PRN Reason Stop Dose Admin Aspirin 162 mg 01/23/20 09:00 01/29/20 07:55 Aspirin Chewable PO 162 mg DAILY KEITH Administration Atorvastatin Calcium 40 mg 01/22/20 21:00 01/29/20 20:21 Lipitor PO 40 mg HS KEITH Administration Clopidogrel Bisulfate 75 mg 01/23/20 09:00 01/29/20 07:55 Plavix PO 75 mg DAILY KEITH Administration Glyburide 2.5 mg 01/23/20 08:00 01/29/20 17:13 Micronase PO 2.5 mg BIDWM KEITH Administration Levothyroxine Sodium 75 mcg 01/23/20 06:30 01/30/20 05:35 Synthroid PO 75 mcg 0630 KEITH Administration Lisinopril 2.5 mg 01/23/20 09:00 01/29/20 07:55 Prinivil PO 2.5 mg DAILY KEITH Administration Metformin HCl 500 mg 01/22/20 17:00 01/29/20 17:13 Glucophage PO 500 mg BIDWM KEITH Administration Multivitamins/Minerals 1 tablet 01/23/20 09:00 01/29/20 07:55 Ocuvite PO 02/22/20 09:01 1 tablet DAILY KEITH Administration Labs Labs: Laboratory Results - last 24 hr 01/29/20 01/29/20 01/30/20 17:07 20:55 04:32 WBC 9.4 RBC 4.45 L Hgb 13.5 L Hct 38.6 L MCV 86.7 MCH 30.3 MCHC 35.0 RDW 12.7 Plt Count 244 MPV 10.7 H Immature Gran % (Auto) 0.4 Neut % (Auto) 47.4 Lymph % (Auto) 28.5 [place] % (Auto) 10.4 H Eos % (Auto) 12.6 H Baso % (Auto) 0.7 Lymph # (Auto) 2.67 [place] # (Auto) 1.0 H Eos # (Auto
[2020-01-30] MEDS: CLOPIDOGREL BISULFATE 75 MG TABLET PO (09:34)
[2020-01-30] MEDS: OPTI-GEN TAB 1 TABLET PO (09:34)
[2020-01-30] MEDS: lisinopriL 2.5 MG TABLET PO (09:34)
[2020-01-30] MEDS: metFORMIN HCL 500 MG TABLET PO ×2 (09:34→17:42)
[2020-01-30] MEDS: ASPIRIN 81 MG CHEWABLE TABLET 162 MG PO (09:34)
[2020-01-30] MEDS: glyBURIDE 2.5 MG TABLET PO ×2 (09:34→17:42)
[2020-01-30 14:00] VITALS: BP 128/62; PULSE 80; RESP 22; TEMP 36.2; O2SAT 98
[2020-01-30 17:31] LABS: Glucose Point of Care 160 (65-105)
[2020-01-30 22:00] VITALS: BP 118/66; PULSE 72; RESP 18; TEMP 36.6; O2SAT 97
[2020-01-30] MEDS: ATORVASTATIN 40 MG TABLET PO (22:22)
[2020-01-31] MEDS: LEVOTHYROXINE SODIUM 75 MCG TABLET PO (05:49)
[2020-01-31 06:00] VITALS: BP 124/72; PULSE 78; RESP 18; TEMP 36.3; O2SAT 98
[2020-01-31 07:02] LABS: Glucose Point of Care 95 (65-105)
[2020-01-31] MEDS: ASPIRIN 81 MG CHEWABLE TABLET 162 MG PO (09:15)
[2020-01-31] MEDS: metFORMIN HCL 500 MG TABLET PO (09:15)
[2020-01-31] MEDS: lisinopriL 2.5 MG TABLET PO (09:15)
[2020-01-31] MEDS: glyBURIDE 2.5 MG TABLET PO (09:15)
[2020-01-31] MEDS: OPTI-GEN TAB 1 TABLET PO (09:15)
[2020-01-31] MEDS: CLOPIDOGREL BISULFATE 75 MG TABLET PO (09:15)
--- NOTE | 2020-01-31 11:25 | WPDNEURORHBP ---
Subjective Date/time seen: 01/31/20 11:25 Interval history: this 79-year-old white male is here after having had the infarct in the left basal ganglia and internal capsule which has affected his cognitive function more so than his right side from both of which he is improving however is still the most important finding is the cognitive dysfunction is speech defect impulsivity and not knowing the consequences of his own acts The patient denies any headache nausea vomiting fever chills sore throat abdominal pain the chest pain or shortness of breath Review of Systems Review of Systems: All systems reviewed & are unremarkable except as noted in HPI and below Functional Status Ambulation Ability Ability to Ambulate 10 Feet: Minimum Assistance X 1 Ability to Ambulate 50 Feet With 2 Turns: Minimum Assistance X 1 Ability to Ambulate 150 Feet: Minimum Assistance X 1 Ambulation Assistive Devices: Walker, Wheeled Transfers Ability Ability to Transfer In/Out of Chair: Contact Guard Exam Const: General: comfortable and no acute distress HENMT: General nose exam: Normal nares present Mouth: Yes moist mucous membranes Eyes: General: appearance normal, both eyes and all related structures Neck: Neck: supple and no JVD Resp: Effort & Inspection: normal respiratory effort Auscultation: clear to auscultation bilaterally Cardio: Rate: regular rate Rhythm: regular rhythm GI: GI Palp: Yes Soft to palpation Auscultation: normal bowel sounds Skin: General skin exam: normal color and no rashes or lesions noted Neuro: Other: patient is awake and alert partially oriented with improved speech and probable right-sided hemiparesis is still needing 247 supervision for his impulsivity of not knowing the consequences of his own [place] Extrem: General: normal to inspection Objective Data Vital Signs Vital Signs: Vital Signs - 24 hr 01/30/20 14:00 01/30/20 22:00 01/31/20 06:00 Temperature 36.2 C L 36.6 C 36.3 C L Pulse Rate 80 72 78 Respiratory Rate 22 H 18 18 Blood Pressure 128/62 118/66 124/72 Pulse Oximetry 98 97 98 Intake/Output Intake/Output: Intake & Output 01/28/20 01/29/20 01/30/20 01/31/20 23:59 23:59 23:59 23:59 Intake Total 720 960 500 240 Balance 720 960 500 240 Meds/Results Medications: Active Medications Generic Name Dose Route Start Last Admin Trade Name Freq PRN Reason Stop Dose Admin Aspirin 162 mg 01/23/20 09:00 01/31/20 09:15 Aspirin Chewable PO 162 mg DAILY KEITH Administration Atorvastatin Calcium 40 mg 01/22/20 21:00 01/30/20 22:22 Lipitor PO 40 mg HS KEITH Administration Clopidogrel Bisulfate 75 mg 01/23/20 09:00 01/31/20 09:15 Plavix PO 75 mg DAILY KEITH Administration Glyburide 2.5 mg 01/23/20 08:00 01/31/20 09:15 Micronase PO 2.5 mg BIDWM KEITH Administration Levothyroxine Sodium 75 mcg 01/23/20 06:30 01/31/20 05:49 Synthroid PO 75 mcg 0630 KEITH Administration Lisinopril 2.5 mg 01/23/20 09:00 01/31/20 09:15 Prinivil PO 2.5 mg DAILY KEITH Administration Metformin HCl 500 mg 01/22/20 17:00 01/31/20 09:15 Glucophage PO 500 mg BIDWM KEITH Administration Multivitamins/Minerals 1 tablet 01/23/20 09:00 01/31/20 09:15 Ocuvite PO 02/22/20 09:01 1 tablet DAILY KEITH Administration Labs Labs: Laboratory Results - last 24 hr 01/30/20 01/31/20 17:26 06:50 POC Capillary Glucose 160 H 95 Progress Note: A&P Assessment and Plan (1) Bilateral leg weakness: Code(s): R29.898 - Other symptoms and signs involving the musculoskeletal system Status: Acute (2) Bilateral arm weakness: Code(s): R29.898 - Other symptoms and signs involving the musculoskeletal system Status: Acute (3) Aphasia: Code(s): R47.01 - Aphasia Status: Acute (4) Hypothyroid: Code(s): E03.9 - Hypothyroidism, unspecified Status: Acute (5) Hypertension: Code(s): I10 - Essential
--- NOTE | 2020-02-08 04:59 | DS_ITS ---
DATE OF DISCHARGE: 01/31/2020 DISCHARGE ACUTE REHAB DIAGNOSIS: Primary rehab impairment category of a stroke with etiological diagnosis of acute infarct of the left basal ganglia and internal capsule. DISCHARGE ACTIVE COMORBID CONDITIONS: 1. Hypertension. 2. Diabetes mellitus. 3. Previous stroke. 4. Hearing deficit. 5. Hyperlipidemia. 6. Hypothyroidism. 7. History of ischemic colitis. REASON FOR ADMISSION: 79-year-old, right-handed male, with moderate cognitive deficit and history of diabetes mellitus, hypertension, previous stroke, presented to [facility] Emergency Room on 01/20/2020 for the complaint of unsteady gait, reduced coordination. In the emergency room, Neurology Service was consulted. The patient was started on antihypertensive medication, Plavix. CT of the brain was negative, but MRI demonstrated small infarct in the left basal ganglia and internal capsule. Aspirin and Plavix were both started. MRA was negative for any occlusion or stenosis or aneurysm. He was started on regular consistency diet with thin liquids, DVT prophylaxis, and transferred to the rehab for further management. LEVEL OF FUNCTION AT THE TIME OF ADMISSION: He required setup for the eating, oral hygiene, and upper body dressing, partial assistance for toileting, bathing, and lower body dressing, supervision for footwear, independent rolling in bed, sit to lying, lying to sitting, supervision for the sit to stand, chair transfer, and toilet transfer, 10 feet walking, 50 feet walking with turns, walking 150 feet, and 10 feet on uneven surfaces, curb or step, 4 steps. He required only setup for the car transfer. He was unable to take 12 steps on the uneven surfaces. He required supervision for picking up object. ANTICIPATED REHAB GOALS: At the time of admission were to make him independent in all the modalities except to require supervision for bathing. LEVEL OF FUNCTION AT THE TIME OF DISCHARGE: He became independent eating, required only setup for the oral hygiene and upper body dressing, substantial assistance for toileting, supervision for bathing, lower body dressing, footwear, and sit to stand, chair transfer, toilet transfer, and car transfer. He became independent rolling in bed, sit to lying and lying to sitting. He required partial assistance for 10 feet walking, 50 feet walking with 2 turns, 150 feet walking and walking 10 feet on uneven surfaces as well. He required only supervision for curb or step, 4 steps, picking up object and the wheelchair up to 150 feet. He required partial assistance for 12 steps. HOSPITAL COURSE: During the hospitalization, he remained stable, actively involved in the physical therapy and occupational therapy. At the time of discharge, he was able to ambulate up to 150 feet with minimal assistance of 1 including 2 turn and using the wheeled walker. He was able to transfer in and out of chair with contact guard. He was not seen by any other consultants. Labs remained stable. At discharge, he was instructed to may shower, no driving, follow the diabetic diet. DISCHARGE MEDICATIONS: Included: 1. Ocuvite 1 tablet daily. 2. Aspirin 162.5 mg daily. 3. Atorvastatin 40 mg at night. 4. Plavix 75 mg daily. 5. Glyburide 2.5 mg twice a day. 6. Levothyroxine 75 mcg daily. 7. Lisinopril 2.5 mg daily. 8. Metformin 500 mg p.o. b.i.d. DISCHARGE DESTINATION: Home with home health. FALL AND INJURY DURING THE HOSPITALIZATION: None. D I [place]: [place]
== END 2020-01-31 13:25 | disposition home health service (06) | DRG 57 ==
PROVIDERS: Admitting Provider Psychiatry & Neurology Neurology; PCP Internal Medicine; Visit Provider Psychiatry & Neurology Neurology
DX: I69.351 Hemiplegia and hemiparesis following cerebral infarction affecting right dominant side (principal); I69.320 Aphasia following cerebral infarction; I69.311 Memory deficit following cerebral infarction; I69.398 Other sequelae of cerebral infarction; H53.40 Unspecified visual field defects; H53.2 Diplopia; E78.5 Hyperlipidemia, unspecified; E03.9 Hypothyroidism, unspecified; E11.42 Type 2 diabetes mellitus with diabetic polyneuropathy; H91.90 Unspecified hearing loss, unspecified ear; I10 Essential (primary) hypertension; Z79.84 Long term (current) use of oral hypoglycemic drugs
CPT/HCPCS: 36415; 80048; 80061; 83036; 85025; 87081; 92507; 92523; 97110; 97116; 97129; 97130; 97162; 97166; 97530; 97535; A9270